=== PATIENT | male | born 1950 | race Asian ===

== ENCOUNTER 2018-02-02 18:23 | Emergency (ER) | payer OTHER ==
[~2018-02-02] VITALS: Ht 167.6 cm; Wt 77.1 kg
[2018-02-02 19:54] LABS: PLATELET COUNT 183 K/uL (142-355)
== END 2018-02-02 20:47 | disposition home or self-care (01) ==
LOC: ED 18:23
PROVIDERS: Specialist
PROC: 0T9B70Z Drainage of Bladder with Drainage Device, Via Natural or Artificial Opening (ICD-10-PCS; principal; 2018-02-02)
DX: N13.9 Obstructive and reflux uropathy, unspecified (principal); Z98.890 Other specified postprocedural states
CPT/HCPCS: 36415; 51702; 80048; 80320; 81000; 85027; 99283

== ENCOUNTER 2022-07-10 17:17 | Emergency (ER) | payer OTHER ==
[~2022-07-10] VITALS: Ht 167.6 cm; Wt 72.6 kg
[2022-07-10 18:13] LABS: PLATELET COUNT 220 K/uL (142-355)
[2022-07-10 18:21] LABS: POTASSIUM 3.1 mmol/L (3.6-5.2)
[2022-07-10 20:00] VITALS: BP 112/55; TEMP 98.5
== END 2022-07-10 20:00 | disposition home or self-care (01) ==
LOC: ED 17:17
PROVIDERS: Family Medicine
PROC: 0T9B70Z Drainage of Bladder with Drainage Device, Via Natural or Artificial Opening (ICD-10-PCS; principal; 2022-07-10)
DX: R33.8 Other retention of urine (principal); N39.0 Urinary tract infection, site not specified; N41.8 Other inflammatory diseases of prostate; E87.6 Hypokalemia
CPT/HCPCS: 51702; 80053; 81000; 85027; 87077; 87086; 87088; 87186; 99283